=== PATIENT | female | born 1980 | race Caucasian/White ===

== ENCOUNTER 2024-01-16 10:53 | Day surgery (SDC) | payer OTHER ==
[~2024-01-16] VITALS: Ht 172.7 cm; Wt 89.9 kg
[~2024-01-16 10:53] MED LIST: ACET500C PO; DOCU10CA PO; IBUP80TA PO; MAPA500T2 PO; VENL150C43 PO
[2024-01-16] MEDS ORDERED: propofoL 200 MG/20 ML VIAL As Ordered ONE (10:56)
[2024-01-16] MEDS ORDERED: KETOROLAC 60MG 2ML VIAL As Ordered ONE (10:56)
[2024-01-16] MEDS ORDERED: fentaNYL 100 MCG/2 ML INJECTION As Ordered ONE (10:56)
[2024-01-16] MEDS ORDERED: MIDAZOLAM INJ 2MG/2ML VIAL As Ordered ONE (10:56)
[2024-01-16] MEDS ORDERED: LR 1,000 ML IV SCH (11:55)
[2024-01-16] MEDS: ceFAZolin SOD 2 GM in IV 1 EA IV ONE (12:53)
[2024-01-16] MEDS ORDERED: HYDR-3713 PO (13:01)
[2024-01-16] MEDS ORDERED: FLOM0.4C39 PO (13:01)
[2024-01-16 13:40] VITALS: BP 119/72; TEMP 97.8; O2SAT 99
== END 2024-01-16 13:52 | disposition home or self-care (01) ==
LOC: M SDC 10:53
PROVIDERS: ATTEND Urology
DX: N20.0 Calculus of kidney (principal); J45.909 Unspecified asthma, uncomplicated; L80 Vitiligo; F41.9 Anxiety disorder, unspecified; Z79.899 Other long term (current) drug therapy; F17.218 Nicotine dependence, cigarettes, with other nicotine-induced disorders; F12.10 Cannabis abuse, uncomplicated
CPT/HCPCS: 50590; 74018; J0690; J1885; J2250; J3010

== ENCOUNTER → 2024-02-27 | Outpatient (REF) | payer OTHER ==
[~2024-02-27] MED LIST changes: +FLOM0.4C39 PO; +HYDR-3713 PO
[2024-02-27 18:54] LABS: APPEARANCE, URINE HAZY (CLEAR); BACTERIA, URINE AUTO NEGATIVE (NEGATIVE); BILIRUBIN, URINE AUTO NEGATIVE (NEGATIVE); BLOOD, URINE BLOOD 3+ (NEGATIVE); COLOR, URINE YELLOW (YELLOW); GLUCOSE, URINE (UA) AUTO NEGATIVE (NEGATIVE); KETONE, URINE AUTO NEGATIVE (NEGATIVE); LEUKOCYTE ESTERASE, URINE AUTO 2+ (NEGATIVE); MUCUS, URINE SMALL (NEGATIVE); NITRITE, URINE AUTO NEGATIVE (NEGATIVE); PROTEIN, URINE AUTO 1+ mg/dL (NEGATIVE); RBC, URINE AUTO TNTC /HPF (0-3); SPECIFIC GRAVITY URINE AUTO 1.023 (1.002-1.035); SQUAMOUS EPITHELIAL CELL UR AU 1 /HPF (0-6); UROBILINOGEN, URINE AUTO 0.2 mg/dL (0.0-2.0); WBC, URINE AUTO 68 /HPF (0-3)
== END ==
LOC: M LABSMT 14:21
PROVIDERS: ATTEND Urology
DX: N20.0 Calculus of kidney (principal)

== ENCOUNTER 2024-03-05 10:43 | Outpatient (CLI) | payer OTHER ==
[2024-03-09] MEDS ORDERED: HYDR-3713 PO (16:40)
[2024-03-10] MEDS ORDERED: ACET1TAB55 PO (18:15)
[2024-03-10] MEDS ORDERED: LEVO1TAB40 PO (18:15)
== END 2024-03-09 22:13 | disposition home or self-care (01) ==
LOC: M RAD 10:43 → M PED 03-09 18:45 → M RAD 03-09 22:13
PROVIDERS: ATTEND Urology
DX: N20.1 Calculus of ureter (principal); N13.30 Unspecified hydronephrosis; K57.90 Diverticulosis of intestine, part unspecified, without perforation or abscess without bleeding; N21.0 Calculus in bladder

== ENCOUNTER 2024-03-09 11:04 | Inpatient (IN) | payer OTHER ==
[~2024-03-09] VITALS: Ht 172.7 cm; Wt 86.6 kg
[2024-03-09 15:22] LABS: BASO # 0.1 10^3/uL (0.0-0.2); BASO % 0.8 % (0.0-1.0); EOS # 0.2 10^3/uL (0.0-0.5); EOS % 1.9 % (0.0-3.0); HEMATOCRIT 43.7 % (36.0-47.0); HEMOGLOBIN 14.3 g/dl (12.0-15.5); LYMPH # 2.5 10^3/uL (1.5-5.0); LYMPH % 23.5 % (24.0-44.0); MEAN CORPUSCULAR HEMOGLOBIN 29.1 pg (27.0-33.0); MEAN CORPUSCULAR HGB CONC 32.7 g/dl (32.0-36.5); MEAN CORPUSCULAR VOLUME 88.8 fl (80.0-96.0); MONO # 1.1 10^3/uL (0.0-0.8); MONO % 10.2 % (2.0-8.0); NEUTROPHILS # 6.7 10^3/uL (1.5-8.5); PLATELET COUNT, AUTOMATED 290 10^3/uL (150-450); RED BLOOD COUNT 4.92 10^6/uL (4.00-5.40); WHITE BLOOD COUNT 10.6 10^3/uL (4.0-10.0)
[2024-03-09] MEDS: KETOROLAC 30 MG/ML 1ML VIAL IV ONE (15:35)
[2024-03-09] MEDS: NS 1,000 ML IV ONE (15:35)
[2024-03-09] MEDS: LevoFLOXacin IV 750 MG in IV 1 EA IV ONE (15:36)
[2024-03-09 15:47] LABS: BLOOD UREA NITROGEN 9 MG/DL (9-23); CALCIUM LEVEL 9.6 MG/DL (8.5-10.1); CARBON DIOXIDE LEVEL 26 MMOL/L (20-31); CHLORIDE LEVEL 105 MMOL/L (98-107); CREATININE FOR GFR 0.82 MG/DL (0.55-1.30); GLOMERULAR FILTRATION RATE > 60.0 (>58); GLUCOSE, FASTING 81 MG/DL (60-100); POTASSIUM SERUM 3.8 MMOL/L (3.5-5.1); SODIUM LEVEL 137 MMOL/L (136-145)
[2024-03-09 15:49] LABS: HCG, SERUM QUALITATIVE NEGATIVE (NEGATIVE)
[2024-03-09] MEDS ORDERED: ACETAMINOPHEN TAB 650MG DOSE (2X325MG) PO PRN (16:25)
[2024-03-09] MEDS ORDERED: HYDR-3713 PO (16:40)
[2024-03-09] MEDS ORDERED: HOME MED LIST COMPLETE! XX SCH (16:45)
[2024-03-09 18:40] VITALS: BP 123/84; TEMP 98.2; O2SAT 100
[2024-03-09] MEDS: LR 1,000 ML IV SCH (19:00)
[2024-03-09 21:00] VITALS: BP 122/69; TEMP 98.7; O2SAT 98
[2024-03-09] MEDS: MORPHINE 2 MG/ML 1ML VIAL IV PRN (21:21)
[2024-03-10 04:00] VITALS: BP 115/68; TEMP 100.1; O2SAT 96
[2024-03-10 07:14] LABS: MEAN CORPUSCULAR HGB CONC 32.8 g/dl (32.0-36.5); MEAN CORPUSCULAR VOLUME 88.5 fl (80.0-96.0); PLATELET COUNT, AUTOMATED 245 10^3/uL (150-450); RED BLOOD COUNT 4.07 10^6/uL (4.00-5.40); WHITE BLOOD COUNT 9.7 10^3/uL (4.0-10.0)
[2024-03-10 07:19] LABS: HEMOGLOBIN 11.8 g/dl (12.0-15.5)
[2024-03-10 07:30] VITALS: BP 115/66; TEMP 100.3; O2SAT 97
[2024-03-10 07:52] LABS: BLOOD UREA NITROGEN 9 MG/DL (9-23); CALCIUM LEVEL 8.4 MG/DL (8.5-10.1); CARBON DIOXIDE LEVEL 25 MMOL/L (20-31); CHLORIDE LEVEL 107 MMOL/L (98-107); CREATININE FOR GFR 0.85 MG/DL (0.55-1.30); GLOMERULAR FILTRATION RATE > 60.0 (>58); GLUCOSE, FASTING 88 MG/DL (60-100); POTASSIUM SERUM 4.2 MMOL/L (3.5-5.1); SODIUM LEVEL 138 MMOL/L (136-145)
[2024-03-10] MEDS: KETOROLAC 30 MG/ML 1ML VIAL IV PRN (12:15)
[2024-03-10 14:00] VITALS: BP 102/70; TEMP 97.9; O2SAT 100
[2024-03-10] MEDS: DIBUCAINE 1% OINTMENT 30GM TOP PRN (14:15)
[2024-03-10] MEDS: ISOVUE-300 61% 100ML VIAL As Ordered ONE (14:30)
[2024-03-10] MEDS ORDERED: LIDOCAINE 2% 100MG/5ML SDV (FOR ANES.) As Ordered ONE (15:26)
[2024-03-10] MEDS ORDERED: fentaNYL 100 MCG/2 ML INJECTION As Ordered ONE (15:26)
[2024-03-10] MEDS ORDERED: propofoL 200 MG/20 ML VIAL As Ordered ONE (15:26)
[2024-03-10] MEDS ORDERED: MIDAZOLAM INJ 2MG/2ML VIAL As Ordered ONE (15:26)
[2024-03-10] MEDS ORDERED: ONDANSETRON 4MG 2ML VIAL As Ordered ONE (15:28)
[2024-03-10] MEDS ORDERED: LR 1,000 ML IV SCH (16:45)
[2024-03-10] MEDS ORDERED: ONDANSETRON 4MG 2ML VIAL IV PRN (16:45)
[2024-03-10] MEDS ORDERED: oxyCODONE 5MG TAB PO PRN (16:45)
[2024-03-10] MEDS ORDERED: LevoFLOXacin IV 750 MG in IV 1 EA IV SCH (18:00)
[2024-03-10 18:10] VITALS: BP 117/76; TEMP 97.3; O2SAT 98
[2024-03-10] MEDS ORDERED: LEVO1TAB40 PO (18:15)
[2024-03-10] MEDS ORDERED: ACET1TAB55 PO (18:15)
[2024-03-10 18:40] VITALS: BP 106/64; TEMP 98.2; O2SAT 98
== END 2024-03-10 19:45 | disposition home or self-care (01) | DRG 446 ==
LOC: M ED 11:04 → M ED INP 16:25 → M PED 19:19 → OBSVTOIN 03-10 14:17
PROVIDERS: ADMIT Internal Medicine; ATTEND Internal Medicine
PROC: 0TC68ZZ Extirpation of Matter from Right Ureter, Via Natural or Artificial Opening Endoscopic (ICD-10-PCS; principal; 2024-03-10 16:00)
DX: N13.2 Hydronephrosis with renal and ureteral calculous obstruction (principal); N39.0 Urinary tract infection, site not specified; F41.9 Anxiety disorder, unspecified; Z88.0 Allergy status to penicillin; Z79.899 Other long term (current) drug therapy; F17.200 Nicotine dependence, unspecified, uncomplicated